=== PATIENT | male | born 1995 | race Asian ===

== ENCOUNTER → 2020-09-24 | Emergency (ER) | payer OTHER ==
[~2020-09-24] VITALS: Ht 182.9 cm; Wt 85.0 kg
[2020-09-24 21:43] VITALS: TEMP 99.2
[2020-09-24 23:55] VITALS: BP 128/72; PULSE 76
== END ==
LOC: COL.ER 21:41
DX: M54.5 Low back pain (principal); S50.311A Abrasion of right elbow, initial encounter; S40.212A Abrasion of left shoulder, initial encounter; V29.49XA Motorcycle driver injured in collision with other motor vehicles in traffic accident, initial encounter